=== PATIENT | male | born 1970 | race Caucasian/White ===

== ENCOUNTER 2019-03-26 15:53 | Observation (INO) | payer BC ==
[2019-03-26 16:44] VITALS: BMI 30.8
[2019-03-26] MEDS ORDERED: D50W 25 GM/50 ML SYRINGE IV PRN (17:02)
[2019-03-26] MEDS ORDERED: GLUCAGON 1 MG/VIAL IM PRN (17:02)
[2019-03-26 17:21] LABS: Absolute Lymphocytes (CBC) 2.2 K/uL (0.7-4.9); Basophils % 0.7 % (0-1.3); Hematocrit 43.4 % (39.6-49.0); Lymphocytes % 28.3 % (15.3-44.8); MPV 8.5 fL (7.6-11.3); RBC Red Blood Cell Count 5.03 M/uL (4.33-5.43)
[2019-03-26] MEDS: NACHLORIDE 0.45% 1,000 ML IV SCH (17:29)
[2019-03-26 17:41] LABS: Albumin 3.9 g/dL (3.4-5.0); Bilirubin Total 0.8 mg/dL (0.2-1.0); Potassium 4.1 mmol/L (3.5-5.1); Protein, Total 7.8 g/dL (6.4-8.2)
[2019-03-26 19:41] LABS: Urine Appearance CLEAR; Urine Bilirubin NEGATIVE (NEG); Urine Blood NEGATIVE (NEG); Urine Color YELLOW; Urine Glucose NEGATIVE (NEG); Urine Protein NEGATIVE (NEG); Urine pH 5.5 (5.0-7.0)
[2019-03-26 19:44] LABS: Urine Microscopic Reflex NO UMIC
--- NOTE | 2019-03-26 20:21 | RAD REPORT ---
EXAM DESCRIPTION: CT - Abdomen Pelvis W Contrast - 03/26/2019 7:04 pm CLINICAL HISTORY: Abdominal pain. COMPARISON: None. TECHNIQUE: Computed axial tomography of the abdomen and pelvis was obtained. 100 cc Isovue-300 is ad ministered intravenously. Oral contrast was given. All CT scans are performed using dose optimization technique as appropriate and may include automated exposure control or mA/KV adjustment according to patient size. FINDINGS: Increased density within the gallbladder. Gallbladder wall is not thickened Fatty liver. 14 millimeter area of increased density is present within the liver near the gallbladder . The spleen, pancreas, adrenals and kidneys are unremarkable Small inguinal hernias contain fat The appendix is normal caliber. There is no evidence of diverticulitis Small to moderate umbilical hernia contains fat. The neck measures 14 millimeters IMPRESSION: Small area of increased density within the gallbladder may represent gallstones. Further evaluation with ultrasound recommended 14 millimeter area of increased density within the liver near the gallbladder may represent an area o f focal fatty sparing. A worrisome mass is considered less likely. This also can be evaluated with ul brandy
[2019-03-26] MEDS ORDERED: INSULIN -REGULAR HUMAN 50 UNIT/0.5 ML ML SQ SCH (21:00)
[2019-03-27] MEDS: NACHLORIDE 0.45% 1,000 ML IV SCH ×4 (04:00→22:47)
[2019-03-27] MEDS: INSULIN -REGULAR HUMAN 50 UNIT/0.5 ML ML SQ SCH ×6 (06:00→20:18)
[2019-03-27] MEDS ORDERED: MORPHINE 2 MG/ML SYR IV PRN (07:39)
--- NOTE | 2019-03-27 09:12 | RAD REPORT ---
EXAM DESCRIPTION: US - Abdomen Exam Complete - 03/27/2019 8:39 am CLINICAL HISTORY: abd pain COMPARISON: Abdomen Pelvis W Contrast dated 03/26/2019 FINDINGS: Gallbladder size is normal. Several small gallstones are present as the correlate to the C T finding. Patient also has 2 small polyps under 5 mm in size. No wall thickening or pericholecystic fluid. Common bile duct is normal with no common duct stone identified. Liver is normal size. There is coarsened, increased echogenicity throughout the liver with poor sonog raphic penetrance. This is a pattern typical of fatty infiltration. No focal liver lesions seen. Sens itivity for lesion detection is decreased in this setting. The recent CT study had no focal liver les ions. No splenomegaly or focal splenic finding. The pancreas is obscured by bowel gas. No pancreatic abnor mality seen on the recent CT study. No hydronephrosis or suspicious mass in either kidney. Aorta and IVC are partially obscured by bowel. No abnormality seen on the recent CT study. No ascites or bulky lymphadenopathy. IMPRESSION: Several small mobile gallstones are identified along with 2 5 mm or less gallbladder wal l polyps. No gallbladder wall thickening or pericholecystic fluid. No biliary tree abnormality. Fatty infiltration of the liver. Pancreas, aorta and IVC are obscured by bowel gas. No abnormalities were seen on the March 26 CT study.
[2019-03-27] MEDS ORDERED: PROPOFOL 200 MG/20 ML VIAL IV ONE (10:18)
[2019-03-27] MEDS ORDERED: LIDOCAINE 2% MPF 5 ML VIAL ONE (10:19)
[2019-03-27] MEDS ORDERED: ONDANSETRON 4 MG/2 ML VIAL ONE ×3 (10:19→12:54)
[2019-03-27] MEDS ORDERED: MIDAZOLAM HCL 2 MG/2 ML INJ ONE (10:19)
[2019-03-27] MEDS ORDERED: FENTANYL CITR 100 MCG/2 ML ONE (10:19)
[2019-03-27] MEDS ORDERED: ROCURONIUM 50 MG/5 ML VIAL IV ONE (10:19)
[2019-03-27] MEDS ORDERED: NA CHLORIDE 0.9% 1,000 ML ONE (10:44)
[2019-03-27] MEDS ORDERED: CEFOXITIN 1 GM/10 ML SYR ONE (10:46)
[2019-03-27] MEDS ORDERED: SUCCINYLCHOLINE 20 MG/ML (10 ML) IV ONE (10:52)
[2019-03-27] MEDS ORDERED: Mastisol Adhesive Liq ONE (11:42)
[2019-03-27] MEDS ORDERED: GLYCOPYRROLATE 0.2 MG/ML SYR ONE (11:43)
[2019-03-27] MEDS ORDERED: NEOSTIGMINE 1 MG/ML -10 ML VIAL ONE (11:44)
--- NOTE | 2019-03-27 11:44 | P.OP ---
Retail Sales Consultant: Shelby REMY Preoperative diagnosis: Acute Cholecystitis and Cholelithiasis and Umbilical Hernia Postoperative diagnosis: same Primary procedure: Lap Kayla Secondary procedure: Repair Umbilical Hernia Anesthesia: General Estimated blood loss: min Specimen: GB and Hernia sac Findings: as above Complications: None Transferred to: Recovery Room Condition: Good
[2019-03-27] MEDS: HYDROMORPHONE HCL 1 MG/ML INJ ONE ×3 (11:58→12:04)
[2019-03-27] MEDS ORDERED: CEFOXITIN SODIUM 1 GM/VIAL IVPB SCH (12:07)
[2019-03-27] MEDS ORDERED: ONDANSETRON 4 MG/2 ML VIAL IV PRN (12:07)
[2019-03-27] MEDS ORDERED: HYDROCODONE/APAP 7.5/325 MG TAB PO PRN (12:07)
[2019-03-27] MEDS ORDERED: HYDROMORPHONE HCL 1 MG/ML INJ IV PRN (12:07)
[2019-03-27] MEDS: CEFOXITIN/SWI 1gm 1 GM/10 ML SYR IV SCH ×3 (12:30→23:01)
--- NOTE | 2019-03-27 13:21 | PREOPCON ---
Date of Consultation: 03/27/2019 Reason For Consultation: Abdominal pain. History Of Present Illness: The patient is a 48-year-old gentleman comes in with a week and a half h istory of biliary colic with epigastric, right upper quadrant pain going to the back, associated with nausea, vomiting, bloating, belching, and heartburn, postprandial in nature. No diarrhea or constip ation. No blood in the stool. No dysuria, hematuria. No sore throat, runny nose, cough, headaches, or dizziness. No chest pain. No fever or chills. Review of Systems: Otherwise unremarkable. Past Medical History: Significant for diabetes, hypertension, hypercholesterolemia. Past Surgical History: Negative. Allergies: INCLUDE PENICILLIN AND CODEINE. Social History: The patient denies smoking or drinking. Family History: Significant for colon cancer in the father. Pancreatic cancer in the mother. Physical Examination: Vital Signs: Stable. He is currently afebrile. General: He is awake, alert, and oriented x3. Head and Neck: No evidence of icterus. Cranial nerves 2 through 12 grossly within normal limits. N o neck masses. No JVD. Throat clear. Neck is supple. Chest: Clear. Heart: S1, S2. Abdomen: Soft, nondistended, positive right upper quadrant tenderness. No rebound, rigidity, or gua rding. Extremity: Adequate perfusion. Nontender. Neuro: Nonfocal. Abdominal ultrasound and CT reviewed shows several small gallstones along with two 5 mm gallbladder w all polyps. White count is normal. LFTs, amylase, lipase are within normal limits. Assessment: Please note, patient does have umbilical hernia, supraumbilical in nature, which was see n on the CAT scan of the neck, measures 14 mm so assessment acute cholecystitis and cholelithiasis wi th umbilical hernia. Plan: Lap stacy, possible open repair of umbilical hernia. Patient understands the risks, benefits, and alternatives and agrees to procedure. /MODL Voice ID: [id number] Report ID: [id number]
--- NOTE | 2019-03-27 20:43 | HP ---
Date of Admission: 03/26/2019 Chief Complaint: Upper abdominal pain. History Of Present Illness: A 48-year-old male was brought to the office with iwojpreo-lx-yasfls abd ominal pain, nausea. Patient was found to have tenderness in the umbilical area on the right side. Patient was admitted for observation. Patient denied any history of vomiting of blood. No history o f blood in the stools. Past Medical History: Patient is known to have history of type 2 diabetes, hypertension, hyperlipide monique, and thyroid problems. Past Surgical History: Positive for surgery on the nose. Family History: Positive for hypertension, diabetes. History of pancreatic cancer present. Allergies: CODEINE AND PENICILLIN. Review of Systems: No chest pain, shortness of breath. Physical Examination: General: Revealed a 48-year-old male in moderate pain. Vital Signs: Afebrile. HEENT: Negative. Neck: Supple. JVD negative. Chest: Clear. Heart: Regular. Abdomen: Tender umbilical and right upper quadrant. Bowel sounds present. Extremities: No edema. Neurological: Negative. Laboratory Data: White count normal. Chem profile normal. Random blood sugar 112. Lipase normal. CAT scan of the abdomen, suggestion of gallstones. Ultrasound of the abdomen, confirmation of galls tones. Assessment: 1.Symptomatic cholelithiasis. 2.Type 2 diabetes. 3.Hypertension. 4.Hyperlipidemia. 5.Hypothyroidism. Plan: IV fluids. Surgical consult. PITER/PERNELL Voice ID: [id number]
--- NOTE | 2019-03-27 23:42 | OP ---
Date of Procedure: 03/27/2019 Surgeon: Daniel Tan MD Hands Parter: SANDRITA Andino. Preoperative Diagnoses: Acute cholecystitis, cholelithiasis, and umbilical hernia. Postoperative Diagnoses: Acute cholecystitis, cholelithiasis, and umbilical hernia. Procedures: Laparoscopic cholecystectomy and repair of umbilical hernia. Estimated Blood Loss: Minimal. Specimen: Hernia sac and contents and gallbladder. Findings: As above. Anesthesia: General. Complications: None. Disposition: The patient tolerated the procedure in stable condition, taken to Recovery in good gene ral condition. Operative Note: The patient was brought to the OR and placed in supine position and general anesthes ia begun. Patient was prepped and draped in usual sterile fashion. Marcaine 0.5% was infiltrated lo mindi. A 15 blade was used to make a 2 cm supraumbilical midline incision. Subcutaneous tissue was divided. Hernia sac contents identified. Dissected down through the fascial layer gently and excise d and sent to Pathology. A 1.5 cm defect remained, #1 Vicryl stay suture was placed. Peritoneal cavi ty was entered and then pneumoperitoneum established. Three 5 mm trocars were placed, 1 in the epiga strium just right of the midline and 2 in the right subcostal region. Laparoscopy revealed acute inf lammation of the gallbladder. Fundus retracted superiorly. Infundibulum was identified and retracte d inferolaterally. Cystic duct and cystic artery were clearly identified with blunt dissection. Cli ps were placed. Both structures were divided. Cautery was used to remove the gallbladder from the l iver bed. Bleeding on the liver bed was controlled with cautery. The gallbladder was retrieved thro ugh the umbilicus via an EndoCatch bag. Right upper quadrant was irrigated. Effluent was clear. No evidence of bleeding or bile leakage appreciated and the one of the trocars had some bloody oozing a nd then a #1 Vicryl utilizing Endo Close was used to secure that and no further bleeding was noted. All trocars were removed under direct vision. Stay sutures were tied to each other to close the vic ia defect. The wounds were irrigated, bleeding controlled with cautery. 3-0 chromic was used to ana lilia roximate the subcutaneous tissue and close the skin. Sterile dressing was applied. The patient was awakened and taken to Recovery in good general condition. /MODL Voice ID: [id number] Report ID: [id number]
[2019-03-28 02:48] VITALS: O2SAT 93
[2019-03-28] MEDS: CEFOXITIN/SWI 1gm 1 GM/10 ML SYR IV SCH (05:03)
[2019-03-28] MEDS: NACHLORIDE 0.45% 1,000 ML IV SCH ×2 (05:04→09:08)
[2019-03-28 06:15] LABS: Magnesium 1.8 mg/dL (1.8-2.4); Phosphorus 3.2 mg/dL (2.5-4.9); Potassium 3.6 mmol/L (3.5-5.1)
[2019-03-28 06:25] LABS: Hematocrit 39.5 % (39.6-49.0); RBC Red Blood Cell Count 4.56 M/uL (4.33-5.43)
[2019-03-28 06:26] LABS: Absolute Lymphocytes (CBC) 1.5 K/uL (0.7-4.9); Basophils % 0.4 % (0-1.3); Lymphocytes % 16.4 % (15.3-44.8); MPV 8.5 fL (7.6-11.3)
[2019-03-28] MEDS: INSULIN -REGULAR HUMAN 50 UNIT/0.5 ML ML SQ SCH (07:30)
[2019-03-28 08:39] VITALS: BP 129/79; TEMP 99
--- NOTE | 2019-03-28 14:25 | PN ---
Date of Progress Note: 03/28/2019 Subjective: Patient is awake, alert, complaining of some incisional pain. Tolerating diet, ambulati ng. Objective: Vital Signs: Stable. Afebrile. Abdomen: Benign. Assessment: Status post laparoscopic cholecystectomy and repair of umbilical hernia. Recommendation: Patient cleared for discharge from surgery standpoint. Discharge instructions given . Patient to follow up with me in 1 week. RICARDA/PERNELL Voice ID: [id number] Report ID: [id number]
== END 2019-03-28 11:49 | disposition home or self-care (01) ==
LOC: 4TH 16:12
PROVIDERS: ADMIT Internal Medicine; ATTEND Internal Medicine
PROC: 0FT44ZZ Resection of Gallbladder, Percutaneous Endoscopic Approach (ICD-10-PCS; principal; 2019-03-27 10:00)
PROC: 0WQF0ZZ Repair Abdominal Wall, Open Approach (ICD-10-PCS; 2019-03-27 10:00)
DX: K80.00 Calculus of gallbladder with acute cholecystitis without obstruction (principal); K42.9 Umbilical hernia without obstruction or gangrene; E78.5 Hyperlipidemia, unspecified; E03.9 Hypothyroidism, unspecified; E11.9 Type 2 diabetes mellitus without complications; I10 Essential (primary) hypertension; E78.00 Pure hypercholesterolemia, unspecified
CPT/HCPCS: 85025 ×2; 80048; 36415 ×2; 83735; 84100; 82962 ×7; 88302; 88304; 81003; 83690; 80053; 74177; 76700; 47562; 49585; Q9967; J2704; J2710; J0330; J2250; J3010; J2270; J1170 ×2; G0378 ×5; J7030; J2405 ×4

== ENCOUNTER 2022-04-30 09:02 | Emergency (ER) | payer BC, OTHER ==
--- OUTSIDE RECORDS SUMMARY | 2022-04-30 09:06 | XMS REPORT | Continuity of Care Document ---
:[address] [facility] t Address [address] [place] [address] [address] [place] [address] Care Team Providers Name Role Phone Pcp, Patient Does Not Have A Primary Care Physician +[id number] Ann Foster Attending Clinician ANN DRAPER Attending Clinician Unavailable Payers Payer Name Policy Type Policy Number Effective Date Expiration Date S ource Problems Condition Condition Condition Status Onset Resolution Last Treating Co mments Source Name Details Category Date Date Treatment Clinician Date No known No known Disease Unive rs active active ity of problems problems [facility] Allergies, Adverse Reactions, Alerts Allergy Allergy Status Severity Reaction(s) Onset Inactive Treating Comm ents Source Name Type Date Date Clinician HYDROMOR DRUG Active Other-Cmnt Univ ers PHONE INGREDI 11-23 ity of 00:00: [place] 00 [facility] Codeine Propensi Active Anaphylaxis Un fish ty to 11-23 ity of adverse 00:00: [place] reaction 00 Medical s Branch Hydromor Propensi Active Other - See "makes m e Univers phone ty to comments 11-23 crazy" ity of adverse 00:00: [place] reaction 00 Medical s Branch Penicill Propensi Active Anaphylaxis U nivers in ty to 11-23 ity of adverse 00:00: [place] reaction Medical s Branch CODEINE DRUG Active Anaphylaxis Univ ers INGREDI 11-23 ity of 00:00: [place] 00 [facility] PENICILL DRUG Active Anaphylaxis Uni vers IN INGREDI 11-23 ity of 00:00: [place] 00 [facility] Branch NO KNOWN Drug Active Univers ALLERGIE Class ity of S [facility] Social History Social Habit Start Date Stop Date Quantity Comments Source Exposure to 2021-11-13 2021-11-23 Not sure [facility] SARS-CoV-2 (event) 00:00:00 17:37:00 Medica l Branch Sex Assigned At [birth year] [facility] 00:00:00 00:00:00 Medical Branch Smoking Status Start Date Stop Date Source Unknown if ever smoked [facility] acute hospital Medications Ordered Filled Start Stop Current Ordering Indication Dosage Frequency Signature Comments Components Source Medication Medication Date Date Medication? Clinician (SIG) Name Name maalox:diph No 15mL 15 mL, Uni vers enhydrAMINE 11-24 Oral, ity of :lidocaine 00:00: 23:06 ONCE, 1 Syed as 2 % viscous 00 :00 dose, On Medi aileen 1:1:1 [facility] Branch (FIRST-MOUT 11/23/[address] [facility]) 1900, ANKUR oral suspension 15 mL ondansetron No 4mg 4 mg, Slow Univers (ZOFRAN 11-24 IV Push, ity of (PF)) 00:00: 23:04 ONCE, 1 [place] injection 4 00 :00 dose, On Medi aileen mg Mon Branch 11/23/21 at 1900, ANKUR pantoprazol Yes [id number] 40mg Take 1 Univers e 40 mg EC 5-23 tablet by ity of tablet 00:00: mouth [place] 00 daily. Medical Branch ondansetron Yes [id number] 4mg Take 1 Univers 4 mg 5-23 tablet by ity of disintegrat 00:00: mouth [place] ing tablet 00 every 8 Medica l (eight) Branch hours as needed for Nausea and Vomiting (N/V). Vital Signs Vital Name Observation Time Observation Value Comments Source Systolic blood 2021-11-23 22:41:00 123 mm[Hg] Univer sity of pressure [facility] Diastolic blood 2021-11-23 22:41:00 81 mm[Hg] Unive rsity of [facility] Heart rate 2021-11-23 22:41:00 91 /min [facility] Body temperature 2021-11-23 22:41:00 36.89 Dee [facility] Respiratory rate 2021-11-23 22:41:00 18 /min [facility] Body height 2021-11-23 22:41:00 175.3 cm [facility] Body weight 2021-11-23 22:41:00 95.255 kg [facility] BMI 2021-11-23 22:41:00 31.01 kg/m2 [facility] Oxygen saturation in 2021-11-23 22:41:00 97 /min [facility] Arterial blood by [facility] Pulse oximetry [place] Procedures Procedure Date / Time Performed Performing Clinician Sour e EKG-12 LEAD 2021-11-24 00:47:57 Ann Draper [facility] LIPASE 2021-11-23 22:59:00 Baron [facility] TROPONIN I 2021-11-23 22:59:00 Baron [facility] COMP. METABOLIC PANEL 2021-11-23 22:59:00 [id number] CBC WITH DIFF 2021-11-23 22:59:00 Baron [facility] CONSENT/REFUSAL FOR 2021-11-23 22:28:55 [facility] TREATMENT Encounters Start End Encounter Admission Attending Care Care Encounter Source Date/Time Date/Time Type Type Clinicians Facility Department ID 2021-11-23 2021-11-23 Emergency [place], [facility] [id number] Univers 17:43:00 20:33:00 Ann HOFF [id number] Gerard [id number] [facility] [id number] [facility] 084 Branch 2021-11-23 2021-11-23 Emergency X RIDXOCHITL, [facility] ERT [id number] Univers 17:43:00 20:33:00 CHRISTOPHER it [facility] Results Test Description Test Time Test Comments Results Result Comments Source CBC WITH DIFF 2021-11-23 23:49:29 Test Item Value Reference Range Interpretation Comme nts WBC (test code = 6690-2) See_Comment [A utomated message] The system which ge nerated this result transmit preet reference range: 4.20 - 1 0.70 10*3/?L. The reference r cristino was not used to interpr et this result as normal/abnor mal. RBC (test code = 789-8) See_Comment [Au tomated message] The system which ge nerated this result transmit preet reference range: 4.26 - 5 .52 10*6/?L. The reference r cristino was not used to interpr et this result as normal/abnor mal. HGB (test code = 718-7) 15.7 g/dL 12.2-16.4 HCT (test code = 4544-3) 47.0 % 38.4-49.3 MCV (test code = 787-2) 87.7 fL 81.7-95.6 MCH (test code = 785-6) 29.3 pg 26.1-32.7 MCHC (test code = 786-4) 33.4 g/dL 31.2-35.0 RDW-SD (test code = 01208-2) 41.3 fL 38.5-51.6 RDW-CV (test code = 788-0) 12.8 % 12.1-15.4 PLT (test code = 777-3) See_Comment [Au tomated message] The system which ge nerated this result transmit preet reference range: 150 - 32 8 10*3/?L. The reference range was not used to interpret th is result as normal/abnormal . MPV (test code = 85242-0) 10.1 fL 9.8-13.0 NRBC/100 WBC (test code = See_Comment [ Automated message] The [id number]) system which ge nerated this result transmit preet reference range: 0.0 - 10 .0 /100 WBCs. The reference r cristino was not used to interpr et this result as normal/abnor mal. NRBC x10^3 (test code = <0.01 See_Comment [Au tomated message] The 5179420990) system which ge nerated this result transmit preet reference range: 10*3/?L. The reference range was not u sed to interpret this result as normal/abnormal . GRAN MAT (NEUT) % (test code 43.6 % = 770-8) IMM GRAN % (test code = 0.20 % 6284654254) LYMPH % (test code = 736-9) 21.1 % MONO % (test code = 5905-5) 8.4 % EOS % (test code = 713-8) 26.4 % BASO % (test code = 706-2) 0.3 % GRAN MAT x10^3(ANC) (test 3.93 10*3/uL 1.99-6.95 code = 5681662304) IMM GRAN x10^3 (test code = <0.03 0.00-0.06 6969313194) LYMPH x10^3 (test code = 1.91 10*3/uL 1.09-3.23 731-0) MONO x10^3 (test code = 0.76 10*3/uL 0.36-1.02 742-7) EOS x10^3 (test code = 2.39 10*3/uL 0.06-0.53 H 711-2) BASO x10^3 (test code = 0.03 10*3/uL 0.01-0.09 704-7) Lab Interpretation (test Abnormal code = 97608-5) [facility]HELLE [id number] 23:47:48 Test Item Value Reference Interpretation Comments Range TROPONIN I (test 0.004 ng/mL See_Comment [Automated code = 8784157633) message] The system which generated this result transmitted reference range : <=0.034. The reference range was not used to interpret this result as normal/abnormal . CORTES (test code = Reference (Normal) CORTES) Range (defined by the 99th percentile reference limit): <= 0.034 ng/mL Note: Cardiac troponin begins to rise 3-4 hours after the onset of ischemia. Repeat in 4-6 hours if the sample was drawn within 3-4 hours of the onset of the symptom and found normal. Diagnosis of myocardial injury is made with acute changes in cTn concentrations with at least one serial sample above the 99th percentile upper reference limit (URL), taken together with the patient's clinical presentation. Biotin has been reported to cause a negative bias, interpret results relative to patient's use of biotin. Lab Interpretation Normal (test code = 16160-8) [facility]. METABOLIC PANEL (75372)2021-11-23 23:36:47 Test Item Value Reference Range Interpretation Comments NA (test code = 138 mmol/L 135-145 6219783833) K (test code = 4.5 mmol/L 3.5-5.0 5706562984) CL (test code = 101 mmol/L 98-108 9700305222) CO2 TOTAL (test code = 27 mmol/L 23-31 4361169543) AGAP (test code = 2-16 8317877074) BUN (test code = 13 mg/dL 7-23 2097579926) GLUCOSE (test code = 251 mg/dL 70-110 H 5188225913) CREATININE (test code = 0.94 mg/dL 0.60-1.25 7351265817) TOTAL BILI (test code = 1.2 mg/dL 0.1-1.1 H 3055983378) CALCIUM (test code = 9.7 mg/dL 8.6-10.6 6053276864) T PROTEIN (test code = 7.0 g/dL 6.3-8.2 1657901850) ALBUMIN (test code = 4.3 g/dL 3.5-5.0 0847009753) ALK PHOS (test code = 67 U/L 34-122 3808351880) ALTv (test code = 24 U/L 5-50 1742-6) AST(SGOT) (test code = 26 U/L 13-40 5340388423) eGFR (test code = mL/min/1.73m2 1268996776) CORTES (test code = CORTES) Association of Glomerular Filtration Rate (GFR) and Staging of Kidney Disease* + --+ --+ ------+| GFR (mL/min/1.73 m2) ?| With Kidney Damage ?| ?Without Kidney Damage+ --------+ --------+ +| ?>90 ?| ?Stage one ?| ? Normal ?+ ---+ ---+ -------+| ?60-89 ?| ?Stage two ?| ? Decreased GFR ? + --+ --+ ------+| ?30-59 ?| ?Stage three ?| ? Stage three ? + --+ --+ ------+| ?15-29 ?| ?Stage four ? | ? Stage four ?+ ---+ ---+ -------+| ?<15 (or dialysis) ? ?| ?Stage five ? | ? Stage five ?+ ---+ ---+ -------+ *Each stage assumes the associated GFR level has been in effect for at least three months. ?Stages 1 to 5, with or without kidney disease, indicate chronic kidney disease. Notes: Determination of stages one and two (with eGFR >59mL/min/1.73 m2) requires estimation of kidney damage for at least three months as defined by structural or functional abnormalities of the kidney, manifested by either:Pathological abnormalities or Markers of kidney damage (including abnormalities in the composition of the blood or urine or abnormalities in imaging tests). Lab Interpretation Abnormal (test code = 17106-0) [facility]:36:06 Test Item Value Reference Range Interpretation Comments LIPASE (test code = 3199525466) 209 U/L 0-220 Lab Interpretation (test code = Normal 46706-1) [facility]
[2022-04-30] MEDS ORDERED: ONDANSETRON 4 MG/2 ML VIAL ONE (09:18)
[2022-04-30] MEDS ORDERED: KETOROLAC 30 MG/ML INJ ONE (09:18)
[2022-04-30] MEDS ORDERED: NA CHLORIDE 0.9% 1,000 ML ONE (09:19)
[2022-04-30 09:31] LABS: Absolute Lymphocytes (CBC) 2.2 K/uL (0.7-4.9); Hematocrit 46.9 % (39.6-49.0); Lymphocytes % 20.4 % (15.3-44.8); MCV 87.3 fL (80-100); MPV 7.7 fL (7.6-11.3); RBC Red Blood Cell Count 5.38 M/uL (4.33-5.43)
[2022-04-30 09:48] LABS: Albumin 4.4 g/dL (3.4-5.0); Bilirubin Total 1.6 mg/dL (0.2-1.0); Potassium 4.1 mmol/L (3.5-5.1); Protein, Total 8.3 g/dL (6.4-8.2)
--- NOTE | 2022-04-30 09:55 | RAD REPORT ---
EXAM DESCRIPTION: CT - Abdomen Pelvis Wo Contrast - 04/30/2022 9:38 am CLINICAL HISTORY: Abdominal pain COMPARISON: 2019 TECHNIQUE: Computed axial tomography of the abdomen and pelvis was obtained. IV and oral contrast we re not requested. All CT scans are performed using dose optimization technique as appropriate and may include automated exposure control or mA/KV adjustment according to patient size. FINDINGS: The evaluation of solid organs, vessels and bowel is limited secondary to the lack of con trast administration. A renal calculus is not seen. Mild right hydronephrosis. 4 millimeter calculus distal right ureter. R ight ureter is dilated. The liver, spleen, pancreas and adrenals appear grossly normal. Cholecystectomy Small tomoderate umbilical hernia. Small inguinal hernias contain fat. The appendix is normal. There is no evidence of diverticulitis. IMPRESSION: 4 millimeter calculus distal right ureter with mild right hydronephrosis
[2022-04-30] MEDS ORDERED: KETAMINE HCL 500 MG/5 ML VIAL ONE (10:47)
[2022-04-30] MEDS ORDERED: NA CHLORIDE 0.9% 100 ML IV ONE (10:47)
--- NOTE | 2022-04-30 12:32 | ER ---
Nurse's Notes [facility] Name: Avery Khanna Age: 51 yrs Sex: Male : 1970 Arrival Date: 04/30/2022 Time: 09:05 Bed 8 Private MD: Diagnosis: Kidney stone;Unspecified hydronephrosis;Right flank pain Presentation: 04/30 09:26 Chief complaint: Patient states: he started having right flank pain approx 3 days ago, ap3 but it went away. patient states that the pain has come back this morning and he "feels like shit". Patient is unable to sit in wheelchair to be taken to ER room. Coronavirus screen: At this time, the client does not indicate any symptoms associated with coronavirus-19. Ebola Screen: No symptoms or risks identified at this time. Initial Sepsis Screen: Does the patient meet any 2 criteria? No. Patient's initial sepsis screen is negative. Does the patient have a suspected source of infection? No. Patient's initial sepsis screen is negative. Risk Assessment: Do you want to hurt yourself or someone else? Patient reports no desire to harm self or others. Onset of symptoms was April 30, 2022. 09:26 Method Of Arrival: Ambulatory ap3 09:26 Acuity: MOISES 3 ap3 Triage Assessment: 09:30 General: Appears uncomfortable, Behavior is anxious, restless. Pain: Complains of pain ap3 in right low back Pain currently is 10 out of 10 on a pain scale. Noted to be grimacing, guarding, moaning, restless. Neuro: Level of Consciousness is awake, alert, obeys commands, Oriented to person, place, time, situation. Cardiovascular: Patient's skin is warm and dry. Respiratory: Airway is patent Respiratory effort is even, unlabored, Respiratory pattern is regular, symmetrical. GI: Reports nausea, vomiting. : Reports pain in right flank(s). Historical: - Allergies: 09:29 PENICILLINS; ap3 09:29 Codeine; ap3 - PMHx: 09:29 Diabetes mellitus; Hypothyroidism; Hypertensive disorder; ap3 - Immunization history:: Client reports having NOT received the Covid vaccine. - Social history:: Smoking status: Patient denies any tobacco usage or history of. Screenin:32 Abuse screen: Denies threats or abuse. Nutritional screening: No deficits noted. ap3 Tuberculosis screening: No symptoms or risk factors identified. Fall Risk No fall in past 12 months (0 pts). No secondary diagnosis (0 pts). IV access (20 points). Ambulatory Aid- None/Bed Rest/Nurse Assist (0 pts). Gait- Weak (10 pts.). Mental Status- Oriented to own ability (0 pts). Total Tan Fall Scale indicates Low Risk Score (25-44 pts). Fall prevention measures have been instituted. Side Rails Up X 2 Placed close to Nursing Station Frequent Obs/Assesments occuring Family Present and informed to notify staff if they need to leave bedside. 09:32 Abuse screen: Denies threats or abuse. Nutritional screening: No deficits noted. vg1 Tuberculosis screening: No symptoms or risk factors identified. Fall Risk No fall in past 12 months (0 pts). No secondary diagnosis (0 pts). IV access (20 points). Ambulatory Aid- None/Bed Rest/Nurse Assist (0 pts). Gait- Normal/Bed Rest/Wheelchair (0 pts) Mental Status- Oriented to own ability (0 pts). Total Tan Fall Scale indicates No Risk (0-24 pts). Assessment: 09:10 General: Appears uncomfortable, Behavior is cooperative, agitated. Pain: Complains of vg1 pain in back and right low back Pain currently is 10 out of 10 on a pain scale. Noted to be agitated, grimacing, guarding, moaning. Neuro: Level of Consciousness is awake, alert, obeys commands, Oriented to person, place, time, situation. Cardiovascular: Patient's skin is warm and dry. Respiratory: Airway is patent Respiratory effort is even, unlabored. GI: Abdomen is round non-distended, Bowel sounds present X 4 quads. Abd is soft and non tender Reports nausea, vomiting. : Denies burning with urination, urinary frequency. EENT: No signs and/or symptoms were reported regarding the EENT system. Derm: Skin is intact. Musculoskeletal: Circulation, motion, and sensation intact. 09:28 Reassessment: pt transported to CT via stretcher. vg1 09:31 General: primary nurse received verbal order from Dr. Rogers for 15mg Toradol IV X's 1.. ap3 10:23 Reassessment: Patient appears in no apparent distress at this time. Patient and/or vg1 family updated on plan of care and expected duration. Pain level reassessed. resting with eyes closed, spouse at bedside. 10:27 Reassessment: Dr Rogers at bedside. vg1 10:50 Reassessment: Patient appears in no apparent distress at this time. Patient and/or vg1 family updated on plan of care and expected duration. Pain level reassessed. Patient is alert, oriented x 3, equal unlabored respirations, skin warm/dry/pink. Pt stated lower ABD pain 6/10. 11:47 Reassessment: Patient appears in no apparent distress at this time. Patient is alert, vg1 oriented x 3, equal unlabored respirations, skin warm/dry/pink. pt appears to be drowsy; pt responds to verbal response. Respiratory: Airway is patent Respiratory effort is even, unlabored. Vital Signs: 09:26 BP 143 / 94; Pulse 84; Resp 19; Temp 98.5; Pulse Ox 100% ; Weight 86.18 kg; Height 5 ap3 ft. 10 in. (177.80 cm); Pain 10/10; 10:27 BP 145 / 86; Pulse 59; Resp 14; Pulse Ox 99% on R/A; vg1 10:55 BP 133 / 83; Pulse 55; Resp 15; Pulse Ox 97% on R/A; vg1 11:30 BP 113 / 61; Pulse 69; Resp 15; Pulse Ox 96% on R/A; vg1 09:26 Body Mass Index 27.26 (86.18 kg, 177.80 cm) ap3 ED Course: 09:05 Patient arrived in ED. as 09:07 Syed Sam PA is PHCP. cp 09:07 Blayne Rogers DO is Attending Physician. cp 09:08 Lucille Main, RN is Primary Nurse. vg1 09:17 Initial lab(s) drawn, by al, sent to lab. Inserted saline lock: 20 gauge in left vg1 antecubital area, using aseptic technique. 09:29 Triage completed. ap3 09:32 Arm band placed on left wrist. ap3 09:32 Patient has correct armband on for positive identification. Call light in reach. Side vg1 rails up X 1. Adult w/ patient. 09:32 Patient has correct armband on for positive identification. Bed in low position. Call ap3 light in reach. Side rails up X 1. Adult w/ patient. Pulse ox on. NIBP on. Door closed. Noise minimized. 09:39 CT Abd/Pelvis - Without Contrast In Process Unspecified. EDMS 12:30 Thomas Higgins MD is Referral Physician. ms3 12:39 No provider procedures requiring assistance completed. IV discontinued, intact, ap3 bleeding controlled, No redness/swelling at site. Pressure dressing applied. Administered Medications: 09:20 Drug: Zofran (Ondansetron) 4 mg Route: IVP; Site: left antecubital; vg1 10:39 Follow up: Response: No adverse reaction; Marked relief of symptoms vg1 09:22 Drug: Ketorolac 15 mg Route: IVP; Site: left antecubital; vg1 10:39 Follow up: Response: No adverse reaction; Pain is decreased vg1 12:40 Follow up: Response: Pain is decreased ap3 09:45 Drug: NS 0.9% 1000 ml Route: IV; Rate: 1 bolus; Site: left antecubital; vg1 12:40 Follow up: Response: No adverse reaction ap3 12:40 Follow up: IV Status: Completed infusion ap3 10:51 Drug: Ketamine 10 mg {Note: Received VO from Dr Rogers to place Ketamine 10 mg in 100mL vg1 NS.} Route: IVP; Site: left antecubital; 12:40 Follow up: Response: No adverse reaction; Pain is decreased ap3 Medication: 09:32 VIS not applicable for this client. vg1 Outcome: 12:31 Discharge ordered by . ms3 12:39 Discharged to home ambulatory, with family. ap3 12:39 Condition: good 12:39 Discharge instructions given to patient, family, Instructed on discharge instructions, follow up and referral plans. medication usage, Demonstrated understanding of instructions, follow-up care, medications, Prescriptions given X 2. 12:41 Patient left the ED. ap3 Signatures: Dispatcher [employer] EDMS Lucinda Tidwell Corey, PA PA cp Prokisch, Amanda, RN RN ap3 Lucille Main, RN RN vg1 Blayne Rogers DO DO ms3 Corrections: (The following items were deleted from the chart) 09:30 09:29 PMHx: Hyperthyroidism; ap3 ap3 09:33 09:10 GI: Abdomen is round non-distended, Bowel sounds present X 4 quads. Abd is soft vg1 and non tender vg1
--- NOTE | 2022-04-30 12:32 | EDPHYS ---
Physician Documentation [facility] Name: Avery Khanna Age: 51 yrs Sex: Male : 1970 Arrival Date: 04/30/2022 Time: 09:05 Bed 8 Private MD: ED Physician Blayne Rogers HPI: 04/30 09:18 This 51 yrs old Male presents to ER via Unassigned with complaints of Abdominal Pain, ms3 Back Pain. 09:18 The patient presents with pain that is acute, with no known mechanism of injury. The ms3 symptoms are located in the Right flank. Onset: The symptoms/episode began/occurred 3 day(s) ago. The pain does not radiate. Associated signs and symptoms: Pertinent positives: nausea, vomiting. The problem was sustained from unknown cause. Modifying factors: The patient symptoms are alleviated by nothing, the patient symptoms are aggravated by nothing. Severity of symptoms: At their worst the symptoms were severe, a " 10" out of "10", in the emergency department the symptoms are unchanged. 51-year-old male with past medical history of diabetes, hypertension, hypothyroid presents for right flank pain that began 3 days prior to arrival. Patient states the pain is 10/10 and is cramping. Patient denies alleviating or inciting factors. Patient denies taking medication for his pain.. Historical: - Allergies: 09:29 PENICILLINS; ap3 09:29 Codeine; ap3 - PMHx: 09:29 Diabetes mellitus; Hypothyroidism; Hypertensive disorder; ap3 - Immunization history:: Client reports having NOT received the Covid vaccine. - Social history:: Smoking status: Patient denies any tobacco usage or history of. ROS: 09:18 Constitutional: Negative for fever, and chills. Neck: Negative for injury, pain, and ms3 swelling, Cardiovascular: Negative for chest pain, and palpitations. Respiratory: Negative for shortness of breath, cough, wheezing, and pleuritic chest pain, Abdomen/GI: Negative for abdominal pain, nausea, vomiting, diarrhea, and constipation. 09:18 MS/Extremity: Negative for injury and deformity. 09:18 Back: Positive for flank pain, on the right. 09:18 All other systems are negative. Exam: 09:18 Constitutional: This is a well developed, well nourished patient who is awake, alert, ms3 and in no acute distress. Head/Face: Normocephalic, atraumatic. Neck: Trachea midline, no cervical lymphadenopathy. Supple, full range of motion without nuchal rigidity, or vertebral point tenderness. No Meningismus. Chest/axilla: Normal chest wall appearance and motion. Nontender with no deformity. Cardiovascular: Regular rate and rhythm with a normal S1 and S2. No gallops, murmurs, or rubs. Normal PMI, no JVD. No pulse deficits. Respiratory: Lungs have equal breath sounds bilaterally, clear to auscultation and percussion. No rales, rhonchi or wheezes noted. No increased work of breathing, no retractions or nasal flaring. Abdomen/GI: Soft, non-tender, with normal bowel sounds. No distension or tympany. No guarding or rebound. No evidence of tenderness throughout. Back: No spinal tenderness. No costovertebral tenderness. Full range of motion. Skin: Warm, dry with normal turgor. Normal color with no rashes, no lesions, and no evidence of cellulitis. MS/ Extremity: Pulses equal, no cyanosis. Neurovascular intact. Full, normal range of motion. Vital Signs: 09:26 BP 143 / 94; Pulse 84; Resp 19; Temp 98.5; Pulse Ox 100% ; Weight 86.18 kg; Height 5 ap3 ft. 10 in. (177.80 cm); Pain 10/10; 10:27 BP 145 / 86; Pulse 59; Resp 14; Pulse Ox 99% on R/A; vg1 10:55 BP 133 / 83; Pulse 55; Resp 15; Pulse Ox 97% on R/A; vg1 11:30 BP 113 / 61; Pulse 69; Resp 15; Pulse Ox 96% on R/A; vg1 09:26 Body Mass Index 27.26 (86.18 kg, 177.80 cm) ap3 MDM: 09:18 Differential diagnosis: Hydronephrosis Pyelonephritis Ureterolithiasis. ms3 09:21 Patient medically screened. ms3 13:49 Data reviewed: vital signs, nurses notes, lab test result(s), radiologic studies, and ms3 as a result, I will discharge patient. Counseling: I had a detailed discussion with the patient and/or guardian regarding: the historical points, exam findings, and any diagnostic results supporting the discharge/admit diagnosis, lab results, radiology results, the need for outpatient follow up, a urologist, to return to the emergency department if symptoms worsen or persist or if there are any questions or concerns that arise at home. ED course: Labs, CT results discussed with patient and his . They understands/ agree with plan. All questions answered. Patient with anaphylaxis to codeine. Patient given Rx for Ibuprofen. Patient to follow up with Dr Higgins in 2-3 days. Patient understands/ agrees with plan. Return precautions given to include worsening symptoms, or any other concerns. On re-evaluation patient is a/ox4, nad, non-toxic, ambulatory in ED, speaking full sentences.. 04/30 09:17 Order name: CBC with Diff; Complete Time: 10:24 ms3 04/30 09:17 Order name: CMP; Complete Time: 10:24 ms3 04/30 09:17 Order name: Lipase; Complete Time: 10:24 ms3 04/30 09:17 Order name: CT Abd/Pelvis - Without Contrast; Complete Time: 10:24 ms3 04/30 09:18 Order name: IV Saline Lock; Complete Time: 09:29 ms3 04/30 09:18 Order name: Labs collected and sent; Complete Time: 09:29 ms3 Administered Medications: 09:20 Drug: Zofran (Ondansetron) 4 mg Route: IVP; Site: left antecubital; vg1 10:39 Follow up: Response: No adverse reaction; Marked relief of symptoms vg1 09:22 Drug: Ketorolac 15 mg Route: IVP; Site: left antecubital; vg1 10:39 Follow up: Response: No adverse reaction; Pain is decreased vg1 12:40 Follow up: Response: Pain is decreased ap3 09:45 Drug: NS 0.9% 1000 ml Route: IV; Rate: 1 bolus; Site: left antecubital; vg1 12:40 Follow up: Response: No adverse reaction ap3 12:40 Follow up: IV Status: Completed infusion ap3 10:51 Drug: Ketamine 10 mg {Note: Received VO from Dr Rogers to place Ketamine 10 mg in 100mL vg1 NS.} Route: IVP; Site: left antecubital; 12:40 Follow up: Response: No adverse reaction; Pain is decreased ap3 Disposition Summary: 04/30/22 12:31 Discharge Ordered Location: Home ms3 Condition: Stable ms3 Diagnosis - Kidney stone ms3 - Unspecified hydronephrosis ms3 - Right flank pain ms3 Followup: ms3 - With: Thomas Higgins MD - When: 2 - 3 days - Reason: Recheck today's complaints Discharge Instructions: - Discharge Summary Sheet ms3 - Kidney Stones ms3 - Kidney Stones, [id number] ms3 - Hydronephrosis ms3 Forms: - Medication Reconciliation Form ms3 - Thank You Letter ms3 - Antibiotic Education ms3 - Prescription Opioid Use ms3 Prescriptions: - Flomax 0.4 mg Oral capsule - take 1 capsule by ORAL route once daily 1/2 hour following the same meal each ms3 day; 20 capsule; Refills: 0, Product Selection Permitted - Ibuprofen 600 mg Oral Tablet - take 1 tablet by ORAL route every 6 hours As needed take with food; 30 tablet; ms3 Refills: 0, Product Selection Permitted Signatures: Dispatcher [employer] Ailyn Frank RN RN ap3 Lucille Main RN RN vg1 Blayne Rogers DO DO ms3 Corrections: (The following items were deleted from the chart) 09:30 09:29 PMHx: Hyperthyroidism; ap3 ap3
[2022-04-30 13:09] VITALS: TEMP 98.5
[2022-04-30 13:13] VITALS: BP 113/61; O2SAT 96
== END 2022-04-30 12:41 | disposition home or self-care (01) ==
LOC: ER 09:02
DX: N13.2 Hydronephrosis with renal and ureteral calculous obstruction (principal); Z88.5 Allergy status to narcotic agent; Z88.0 Allergy status to penicillin
CPT/HCPCS: 96361; 85025; 36415; 83690; 80053; 74176; 96375; 96374; 99284; J7030; J2405